=== PATIENT | male | born 1975 | race Caucasian/White ===

== ENCOUNTER → 2017-04-05 | Outpatient (REF) ==
--- NOTE | 2017-04-06 02:41 | REP ---
Clinical: Neck pain. Technique: AP, lateral, open mouth views of the cervical spine. Findings: Alignment and lordosis maintained. No acute fracture / compression injury or subluxation. Age-related changes including very minimal disc space narrowing with endplate sclerosis predominantly noted at the C5-6 and C6-7 levels. Impression: Mild degenerative disc disease at the C5-6 and C6-7 levels. Alignment and lordosis maintained. No acute fracture / compression injury. Signed by Titus Mcpherson MD 04/06/2017 02:32 A
== END ==
LOC: M SMT 13:23
PROVIDERS: ATTEND Internal Medicine
DX: M50.320 Other cervical disc degeneration, mid-cervical region, unspecified level (principal)

== ENCOUNTER 2018-03-24 00:08 | Inpatient (IN) | payer OTHER ==
[2018-03-24] MEDS: LORazepam 2 MG TAB PO (01:04)
[2018-03-24] MEDS ORDERED: MAALOX 30 ML SUSP *UDC PO (01:15)
[2018-03-24] MEDS ORDERED: MOM 30ML SUSPENSION UDC PO (01:15)
[2018-03-24] MEDS: GABAPENTIN 400 MG CAP PO ×3 (09:53→16:05)
[2018-03-24 11:15] LABS: HEMATOCRIT 32.2 % (42.0-52.0); HEMOGLOBIN 10.8 g/dl (13.5-17.5); MEAN CORPUSCULAR HEMOGLOBIN 27.3 pg (27.0-33.0); MEAN CORPUSCULAR HGB CONC 33.5 g/dl (32.0-36.5); MEAN CORPUSCULAR VOLUME 81.5 fl (80.0-96.0); PLATELET COUNT, AUTOMATED 219 10^3/uL (150-450); RED BLOOD COUNT 3.95 10^6/uL (4.30-6.10); RED CELL DISTRIBUTION WIDTH 15.5 % (11.5-14.5); WHITE BLOOD COUNT 7.3 10^3/uL (4.0-10.0)
[2018-03-24 11:49] LABS: ALBUMIN 2.9 GM/DL (3.2-5.2); ALBUMIN/GLOBULIN RATIO 0.59 (1.00-1.93); ALKALINE PHOSPHATASE 105 U/L (45-117); ALT/SGPT 23 U/L (12-78); ANION GAP 7 MEQ/L (8-16); AST/SGOT 18 U/L (7-37); BILIRUBIN,TOTAL 0.1 MG/DL (0.2-1.0); BLOOD UREA NITROGEN 16 MG/DL (7-18); CALCIUM LEVEL 8.6 MG/DL (8.5-10.1); CARBON DIOXIDE LEVEL 27 MEQ/L (21-32); CHLORIDE LEVEL 105 MEQ/L (98-107); CREATININE FOR GFR 0.68 MG/DL (0.70-1.30); GLOMERULAR FILTRATION RATE > 60.0 (>60); GLUCOSE, FASTING 112 MG/DL (70-100); POTASSIUM SERUM 3.8 MEQ/L (3.5-5.1); SODIUM LEVEL 139 MEQ/L (136-145); TOTAL PROTEIN 7.8 GM/DL (6.4-8.2)
[2018-03-24 12:41] LABS: HEPATITIS B SURFACE ANTIGEN NEGATIVE (NEGATIVE)
[2018-03-24] MEDS: BUPRENORPHINE/NALOXONE 8-2MG SUBLINGUAL TABLET(SUBOXONE) SL ×2 (12:51→21:00)
[2018-03-24] MEDS: LORazepam 1 MG TAB PO ×2 (12:51→16:04)
[2018-03-24] MEDS: SERTRALINE HCL 25 MG TABLET PO (12:51)
[2018-03-24 12:56] LABS: HEPATITIS B CORE ANTIBODY IGM NEGATIVE (NEGATIVE)
[2018-03-24 13:05] LABS: HEPATITIS A ANTIBODY IGM NEGATIVE (NEGATIVE)
[2018-03-24 13:08] LABS: HIV 1&2 SCREEN CENTAUR NEGATIVE (NEGATIVE)
[2018-03-24 13:27] LABS: HEPATITIS C VIRUS ABY INDEX > 11.0 INDEX (<0.8)
[2018-03-24] MEDS: QUEtiapine FUMARATE 100 MG TAB PO ×3 (16:04→21:00)
[2018-03-24] MEDS: cloNIDine 0.1 MG TAB PO (21:00)
[2018-03-24] MEDS: PRAZOSIN 1 MG CAP PO (21:00)
[2018-03-25] MEDS: GABAPENTIN 300 MG CAP PO ×3 (06:33→22:02)
[2018-03-25] MEDS: ACETAMINOPHEN TAB 650MG DOSE (2X325MG) PO ×3 (06:34→22:02)
[2018-03-25] MEDS: SERTRALINE HCL 25 MG TABLET PO (09:49)
[2018-03-25] MEDS: QUEtiapine FUMARATE 100 MG TAB PO ×3 (09:49→21:59)
[2018-03-25] MEDS: BUPRENORPHINE/NALOXONE 8-2MG SUBLINGUAL TABLET(SUBOXONE) SL ×2 (09:53→22:00)
[2018-03-25] MEDS: NICOTINE 21MG/24HR 1 EA TRANSDERMAL TD (15:11)
[2018-03-25] MEDS: PRAZOSIN 1 MG CAP PO (21:59)
[2018-03-25] MEDS: cloNIDine 0.1 MG TAB PO (22:00)
[2018-03-26] MEDS: SERTRALINE HCL 25 MG TABLET PO (08:12)
[2018-03-26] MEDS: QUEtiapine FUMARATE 100 MG TAB PO ×2 (08:12→20:27)
[2018-03-26] MEDS: BUPRENORPHINE/NALOXONE 8-2MG SUBLINGUAL TABLET(SUBOXONE) SL ×2 (08:12→20:28)
[2018-03-26] MEDS: GABAPENTIN 300 MG CAP PO ×3 (08:12→20:30)
[2018-03-26] MEDS: NICOTINE 21MG/24HR 1 EA TRANSDERMAL TD (08:12)
[2018-03-26] MEDS: ACETAMINOPHEN TAB 650MG DOSE (2X325MG) PO ×3 (08:14→20:31)
[2018-03-26] MEDS: cloNIDine 0.1 MG TAB PO (20:28)
[2018-03-26] MEDS: traZODone 50 MG TAB PO (20:28)
[2018-03-26] MEDS: PRAZOSIN 1 MG CAP PO (20:30)
[2018-03-27] MEDS: GABAPENTIN 300 MG CAP PO ×3 (06:11→20:40)
[2018-03-27] MEDS: ACETAMINOPHEN TAB 650MG DOSE (2X325MG) PO ×3 (06:14→20:20)
[2018-03-27] MEDS: NICOTINE 21MG/24HR 1 EA TRANSDERMAL TD (08:17)
[2018-03-27] MEDS: SERTRALINE HCL 25 MG TABLET PO (08:18)
[2018-03-27] MEDS: QUEtiapine FUMARATE 100 MG TAB PO ×2 (08:18→20:19)
[2018-03-27] MEDS: BUPRENORPHINE/NALOXONE 8-2MG SUBLINGUAL TABLET(SUBOXONE) SL ×2 (08:54→20:19)
[2018-03-27] MEDS: cloNIDine 0.1 MG TAB PO (20:19)
[2018-03-27] MEDS: traZODone 50 MG TAB PO (20:19)
[2018-03-27] MEDS: PRAZOSIN 1 MG CAP PO (20:19)
[2018-03-28 00:07] LABS: HCV RNA NAA QUALITATIVE Negative (Negative)
[2018-03-28] MEDS: GABAPENTIN 300 MG CAP PO ×2 (05:50→12:11)
[2018-03-28] MEDS: ACETAMINOPHEN TAB 650MG DOSE (2X325MG) PO ×2 (05:50→12:10)
[2018-03-28] MEDS: BUPRENORPHINE/NALOXONE 8-2MG SUBLINGUAL TABLET(SUBOXONE) SL (08:27)
[2018-03-28] MEDS: SERTRALINE HCL 25 MG TABLET PO (08:27)
[2018-03-28] MEDS: QUEtiapine FUMARATE 100 MG TAB PO (08:27)
[2018-03-28] MEDS: NICOTINE 21MG/24HR 1 EA TRANSDERMAL TD (08:28)
== END 2018-03-28 14:00 | disposition home or self-care (01) | DRG 753 ==
LOC: M PSY 03-25 08:30 → M ED 00:08 → M ED INP 01:13 → M PSY 02:37
DX: F31.9 Bipolar disorder, unspecified (principal); R45.851 Suicidal ideations; F19.94 Other psychoactive substance use, unspecified with psychoactive substance-induced mood disorder; Z79.899 Other long term (current) drug therapy; F41.9 Anxiety disorder, unspecified; G89.29 Other chronic pain; Z62.810 Personal history of physical and sexual abuse in childhood; G47.00 Insomnia, unspecified; F17.200 Nicotine dependence, unspecified, uncomplicated; B18.2 Chronic viral hepatitis C